=== PATIENT | female | born 1990 | race Caucasian/White ===

== ENCOUNTER 2018-02-18 02:20 | Emergency (ER) | payer BC, OTHER ==
[~2018-02-18] VITALS: Ht 154.9 cm; Wt 53.5 kg
[2018-02-18 09:48] LABS: BASOPHILS % 0.3 % (0.0-2.0); CHLORIDE 104 mEq/L (98-107); HEMATOCRIT. 39.9 % (36.0-48.0); HEMOGLOBIN. 13.9 g/dL (12.0-16.0); MEAN CORPUSCULAR HEMOGLOBIN 31.2 pg (28.0-32.0); MEAN CORPUSCULAR VOLUME 89.4 fL (81.0-99.0); MEAN PLATELET VOLUME 6.7 fl (7.4-10.4); MONOCYTES % 5.1 % (2.0-8.0); NEUTROPHILS % 80.6 % (40.0-76.0); PLATELET 300 x1000/uL (130-400); RED BLOOD CELL COUNT 4.47 mill/uL (4.2-5.4); RED CELL DISTRIBUTION WIDTH 12.6 % (11.6-14.6)
[2018-02-18 09:52] LABS: ETHANOL BLOOD < 10 mg/dL
[2018-02-18 10:11] LABS: CLARITY URINE CLEAR (CLEAR); COLOR URINE YELLOW (YELLOW); KETONES URINE 2+ (NEGATIVE); LEUKOCYTE ESTERASE URINE NEGATIVE (NEGATIVE); NITRITE URINE NEGATIVE (NEGATIVE); OCCULT BLOOD URINE NEGATIVE (NEGATIVE); PROTEIN URINE NEGATIVE (NEGATIVE); SPECIFIC GRAVITY URINE 1.007 (1.005-1.030)
[2018-02-18 10:26] LABS: *AMPHETAMINES SCREEN URINE NEGATIVE (NEGATIVE)
[2018-02-18 10:27] LABS: *BARBITURATES SCREEN URINE NEGATIVE (NEGATIVE); *COCAINE SCREEN URINE NEGATIVE (NEGATIVE); CANNABINOID URINE SCREEN NEGATIVE (NEGATIVE); METHADONE URINE SCREEN NEGATIVE (NEGATIVE); OPIATES URINE SCREEN NEGATIVE (NEGATIVE); PHENCYCLIDINE URINE SCREEN NEGATIVE (NEGATIVE)
[2018-02-18 10:35] LABS: *BENZODIAZEPINES SCREEN URINE PRESUMTIVE POSITIVE (NEGATIVE)
[2018-02-18 14:41] VITALS: BP 122/72
== END 2018-02-18 15:37 | disposition home or self-care (01) ==
LOC: ER 02:20
DX: F41.9 Anxiety disorder, unspecified (principal); F22 Delusional disorders; F32.9 Major depressive disorder, single episode, unspecified; Z88.0 Allergy status to penicillin
CPT/HCPCS: 36415; 80053; 80305; 81003; 81025; 85025; 99284; G0482